=== PATIENT | male | born 1940 | race Caucasian/White ===

== ENCOUNTER 2016-02-28 10:28 | Outpatient (RCR) | payer OTHER ==
--- OUTSIDE RECORDS SUMMARY | 2016-01-23 12:46 | XMS REPORT | Continuity of Care Document ---
Author Author [facility] Organization [facility] Address Unknown Phone Unavailable Care Team Providers Care Tool Repairer Bench Name Role Phone MitchellmralaLocPrincess PCP [phone] Source Comments Some departments are not documenting in the electronic medical record. If you do not see the information that you expected, contact Release of Information in the Health Information Management department at [phone] for further assistance in locating additional records.[facility] Active Allergies and Adverse Reactions Not on File Current Medications Not on file Active Problems Not on file Most Recent Encounters Date Type Specialty Providers Description 11/09/2015 Patient Profile Cardiology Andrea Rios New Patient - A Fib/ Flutter Social History Tobacco Use Types Packs/Day Years Used Date Never Assessed Plan of Care Health Maintenance Due Date Last Done Comments Physical (Comprehensive) 1947 Exam Pertussis Vaccine 1949 Tetanus Vaccine 05/04/1955 Shingles Vaccine 1998 Prevnar/Pneumovax (#1) 05/04/2003 Influenza Vaccine 10/20/2015 Results from Last 3 Months Not on file
[2016-01-23 13:03] LABS: BASOPHILS % (AUTO) 0 % (0-10); EOSINOPHILS # (AUTO) 0.1 10^3/uL (0.0-0.3); EOSINOPHILS % (AUTO) 1 % (0-10); LYMPHOCYTES # (AUTO) 0.8 X 10^3 (1.0-4.0); LYMPHOCYTES % (AUTO) 10 % (12-44); MEAN CORPUSCULAR HEMOGLOBIN 30 PG (25-34); MEAN CORPUSCULAR HGB CONC 32 G/DL (32-36); MEAN CORPUSCULAR VOLUME 94 FL (80-99); MEAN PLATELET VOLUME 8.7 FL (7.4-10.4); MONOCYTES # (AUTO) 0.8 X 10^3 (0.0-1.0); MONOCYTES % (AUTO) 10 % (0-12); NEUTROPHILS # (AUTO) 5.8 X 10^3 (1.8-7.8); NEUTROPHILS % (AUTO) 79 % (42-75); PLATELET COUNT 244 10^3/uL (130-400); RED CELL DISTRIBUTION WIDTH 14.1 % (10.0-14.5); WHITE BLOOD COUNT 7.4 10^3/uL (4.3-11.0)
[2016-01-23 13:32] LABS: ALANINE AMINOTRANSFERASE 15 U/L (0-55); ALBUMIN 3.2 G/DL (3.2-4.5); ANION GAP 8 MMOL/L (5-14); ASPARTATE AMINO TRANSFERASE 22 U/L (5-34); BLOOD UREA NITROGEN 16 MG/DL (7-18); BUN/CREATININE RATIO 22; CALCIUM 8.6 MG/DL (8.5-10.1); CARBON DIOXIDE 33 MMOL/L (21-32); CHLORIDE 95 MMOL/L (98-107); CREATININE SERUM 0.72 MG/DL (0.60-1.30); GFR ESTIMATED > 60; GLUCOSE 103 MG/DL (70-105); POTASSIUM 3.7 MMOL/L (3.6-5.0); SODIUM 136 MMOL/L (135-145); TOTAL PROTEIN 5.4 G/DL (6.4-8.2)
[2016-01-23 14:33] LABS: BILIRUBIN,TOTAL 0.8 MG/DL (0.1-1.0)
[2016-01-24 07:58] LABS: FERRITIN 147 ng/mL (25-300)
[2016-01-30 08:33] LABS: BCR ABL GENE QT SEE FOOTNOTE
[~2016-02-28 10:28] MED LIST: ACET325T38 PO; ALBU2.5V4 IH; ALBU8.5H2 IH; ALEN70TA47 PO; ALLO100T PO; APIX5TAB PO; APIX5TAB2 PO; BISA5TAB8 PO; BUDE6HFA IH; CALC-656 PO; CALC-671 PO; CHOL100011 PO; DILT240C90 PO; DIPH25CA6 PO; ERGO400C PO; FERR-57 PO; FERR-74 PO; FL.025O15 TP; FLUO60SO2 TP; FRSM40T PO; FURO-125 PO; FURO40TA4 PO; HCT25T PO; IMAT400T PO; IMAT400T2 PO; INDO50CA PO; KETO120S5 TP; LEVO500T80 PO; LEVO750T6 PO; LISI10TA2 PO; LISI5TAB14 PO; LORA10TA7 PO; METO-274 PO; METO25TA2 PO; MORP15TA PO; MORP15TA30 PO; MORP15TA8 PO; MULT-142 PO; MUPI15CR11 TP; MUPI22OI2 TP; OMEP20CA12 PO; OXYC-103 PO; OXYC10TA7 PO; OXYC5TAB71 PO; PHYT100T PO; PHYT1LIQ PO; PNT40TEC PO; POTA10TA36 PO; POTA20PI PO; POTA20TA15 PO; PRD20T PO; PRED10TA PO; PRED10TA22 PO; PRED15SO PO; PRED5TAB PO; SIMV20TA3 PO; SIMV40TA4 PO; SPIR25TA3 PO; SPRN25T PO; TIOT18CA2 IH; TRIA1TAB3 PO; TRM50T PO; VIT1CAPS14 PO; VITAMIN K PO; ZLP10T PO; ZLP5T PO; [UNRECOGNIZED DRUG - CODE] PO; calcium PO
[2016-03-05] MEDS ORDERED: PRD10T PO (11:01)
[2016-03-05] MEDS ORDERED: FERR324T4 PO (11:01)
[2016-03-05] MEDS ORDERED: LISI10TA2 PO (11:01)
[2016-03-05] MEDS ORDERED: DILT240C PO (11:01)
[2016-03-05] MEDS ORDERED: SIMV20TA3 PO (11:01)
[2016-03-05] MEDS ORDERED: LISI-556 PO (12:36)
== END 2016-03-06 | disposition home or self-care (01) ==
LOC: ONC 10:28
PROVIDERS: ATTEND Internal Medicine Hematology & Oncology
DX: C92.10 Chronic myeloid leukemia, BCR/ABL-positive, not having achieved remission (principal); I25.10 Atherosclerotic heart disease of native coronary artery without angina pectoris; I10 Essential (primary) hypertension; E78.00 Pure hypercholesterolemia, unspecified; Z87.891 Personal history of nicotine dependence; Z79.899 Other long term (current) drug therapy
CPT/HCPCS: 36415; 80053; 81206; 82728; 85025; 99213

== ENCOUNTER 2016-03-04 10:31 | Inpatient (IN) | payer OTHER ==
[~2016-03-04] VITALS: Ht 180.3 cm; Wt 93.2 kg
--- OUTSIDE RECORDS SUMMARY | 2016-03-04 10:35 | XMS REPORT | Continuity of Care Document ---
Author Author [facility] Organization [facility] Address Unknown Phone Unavailable Care Team Providers Care Nuclear Medicine Chief Technologist Name Role Phone Princess Feldman PCP [phone] Source Comments Some departments are not documenting in the electronic medical record. If you do not see the information that you expected, contact Release of Information in the Health Information Management department at [phone] for further assistance in locating additional records.[facility] Active Allergies and Adverse Reactions Not on File Current Medications Not on file Active Problems Not on file Social History Tobacco Use Types Packs/Day Years Used Date Never Assessed Plan of Care Health Maintenance Due Date Last Done Comments Physical (Comprehensive) 1947 Exam Pertussis Vaccine 1949 Tetanus Vaccine 05/04/1955 Shingles Vaccine 1998 Prevnar/Pneumovax (#1) 05/04/2003 Influenza Vaccine 10/20/2015 Results from Last 3 Months Not on file
--- NOTE | 2016-03-04 10:54 | ED Cough/URI ---
General Stated Complaint: WHEEZING/DIFF BREATHING Source: patient Exam Limitations: no limitations History of Present Illness Time seen by provider: 10:53 Initial Comments To ER with reports of wheezing and difficulty breathing. He's had a nasty sounding cough for the past 3 weeks according to family members. They've been seen at [facility] and he finished antibiotics about a week ago for bronchitis. He has COPD and wears oxygen at 2 L [id number]. Timing/Duration: constant, getting worse Severity/Quality: productive cough Associated Symptoms: cough Allergies and Home Medications Allergies Coded Allergies: No Known Drug Allergies (Unverified , 04/08/15) Home Medications Acetaminophen 325 Mg Tablet 325 MG PO Q4H PRN PRN PAIN (Reported) Albuterol 8.5 Gm Hfa.aer.ad 2 PUFF IH Q4H PRN PRN SHORTNESS OF BREATH (Reported ) Albuterol Sulfate 2.5 Mg/3 Ml Vial.neb 2.5 MG IH QID PRN PRN SHORTNESS OF BREATH (Reported) Alendronate Sodium 70 Mg Tablet 70 MG PO WEEKLY ON SATURDAY (Reported) Budesonide/Formoterol Fumarate 1 Inhaler Aero 2 PUFF IH BID PRN PRN SHORTNESS OF BREATH (Reported) Calcium Carbonate/Vitamin D3 1 Each Tablet 1 TAB PO BID (Reported) Cholecalciferol 1,000 Unit Capsule 1,000 UNIT PO DAILY (Reported) Diltiazem HCl 240 Mg Cap.er.24h #30 240 MG PO DAILY Prescribed by: VITO PATE on 09/11/15 1126 Diphenhydramine HCl 25 Mg Capsule 25 MG PO HS PRN PRN ALLERGIES (Reported) Ferrous Sulfate 325 Mg Tablet 325 MG PO DAILY (Reported) Fluocinolone Acetonide 60 Ml Solution TP BID PRN PRN ITCHING (Reported) Furosemide 40 Mg Tablet 60 MG PO DAILY (Reported) Ketoconazole 120 Ml Shampoo TP DAILY (Reported) APPLY TO SCALP DAILY (LEAVE ON 5 MINUTES THEN WASH OFF) Loratadine 10 Mg Tablet 10 MG PO DAILY PRN PRN ALLERGIES (Reported) Metoprolol Succinate 100 Mg Tab.er.24h 50 MG PO DAILY (Reported) TAKES 1/2 (100MG) TABLET Multivitamin W-Minerals/Lutein 1 Each Tablet 1 TAB PO BID (Reported) Mupirocin Calcium 15 Gm Cream..g. TP DAILY (Reported) Oxycodone Hcl 5 Mg Tablet 5 MG PO 5 TIMES DAILY PRN PRN PAIN (Reported) Phytonadione 100 Mcg Tablet 100 MCG PO DAILY (Reported) Potassium Chloride 20 Meq Tab.prt.sr 20 MEQ PO DAILY (Reported) Prednisone 20 Mg Tab #11 20 MG PO DAILY (Reported) Take 3 tabs(60mg)daily, decrease by 1/2 tab(10mg)daily. Simvastatin 20 Mg Tablet #30 20 MG PO DAILY PRN PRN 30 Prescribed by: VITO PATE on 09/11/15 1126 Tiotropium [place] 1 Inh Aerp 1 CAP IH DAILY PRN PRN SHORTNESS OF BREATH ( Reported) Zolpidem Tartrate 5 Mg Tablet 5 MG PO HS PRN PRN SLEEP (Reported) Constitutional: see HPI EENTM: see HPI Respiratory: see HPI cough short of breath Genitourinary: no symptoms reported Musculoskeletal: no symptoms reported Skin: no symptoms reported Psychiatric/Neurological: No Symptoms Reported Hematologic/Lymphatic: No Symptoms Reported Immunological/Allergic: no symptoms reported Past Nrqjtht-Rpwqij-Prgyqv Hx Patient Social History Former Smoker/When Quit: Feb 18, 1967 Recent Foreign Travel: No Contact w/Someone Who Travel: No Recent Hopitalizations: No Immunizations Up To Date Tetanus Booster (TDap): Unknown PED Vaccines UTD: No Date of Pneumonia Vaccine: Jan 18, 2015 Date of Influenza Vaccine: Nov 19, 2015 Seasonal Allergies Seasonal Allergies: Yes Surgeries HX Surgeries: Yes (LL lobectomy) Surgeries: Lobectomy Respiratory Hx Respiratory Disorders: Yes (Chronic hypoxia on continuous home oxygen supplementation) Respiratory Disorders: Pneumonia, Chronic Bronchitis, COPD Cardiovascular Hx Cardiac Disorders: Yes Cardiac Disorders: Atrial Fibrillation, Valvular Heart Disease Neurological Hx Neurological Disorders: No Reproductive System Hx Reproductive Disorders: No Sexually Transmitted Disease: No HIV/AIDS: No Genitourinary Hx Genitourinary Disorders: No Gastrointestinal Hx Gastrointestinal Disorders: No Musculoskeletal Hx Musculoskeletal Disorders: Yes (polymyalgia rheumatica) Musculoskeletal Disorders: Arthritis, Chronic Back Pain Endocrine Hx Endocrine Disorders: No HEENT HX ENT Disorders: No HEENT Disorders: Cataract Loss of Vision: Bilateral Hearing Impairment: Hard of Hearing, Bilateral Hearing Aide Cancer Hx Cancer: Yes Cancer: Leukemia, Skin Psychosocial Hx Psychiatric Problems: No Integumentary HX Skin/Integumentary Disorder: Yes (SKIN CA REMOVED TO L HAND, FOREHEAD, AND TOP OF HEAD) Blood Transfusions Hx Blood Disorders: Yes (Chronic Leukemia ) Family Medical History Family Medial History: FH: cancer G8 BROTHER Physical Exam Vital Signs Vital Sign - Last 12Hours 03/04/16 10:45 Temp 98.9 Pulse 88 Resp 22 B/P 108/76 Pulse Ox 89 O2 Delivery Nasal Cannula O2 Flow Rate 3 Capillary Refill : General Appearance: WD/WN no apparent distress Eyes: Bilateral Eye EOMI, Bilateral Eye Normal Inspection, Bilateral Eye PERRL HEENT: PERRL/EOMI normal ENT inspection Neck: non-tender full range of motion Respiratory: no respiratory distress no accessory muscle use crackles rales rhonchi wheezing Cardiovascular: regular rate, rhythm no murmur Gastrointestinal: normal bowel sounds non tender soft Extremities: normal range of motion non-tender Neurologic/Psychiatric: alert normal mood/affect oriented x 3 Skin: normal color warm/dry Progress/Results/Core Measures Results/Orders Lab Results Laboratory Tests Test 03/04/16 10:55 03/04/16 11:10 Range/Units Alanine Aminotransferase (ALT/SGPT) 18 0-55 U/L Albumin 3.4 3.2-4.5 G/DL Alkaline Phosphatase 90 40-136 U/L Anion Gap 12 5-14 MMOL/L Aspartate Amino Transf (AST/SGOT) 20 5-34 U/L BUN/Creatinine Ratio 29 Band Neutrophils 2 % Basophils # (Auto) 0.0 0.0-0.1 10^3/uL Basophils (%) (Auto) 0 0-10 % Blood Morphology Comment NORMAL Blood Urea Nitrogen 20 H 7-18 MG/DL Calcium Level 9.2 8.5-10.1 MG/DL Carbon Dioxide Level 32 21-32 MMOL/L Chloride Level 87 L 98-107 MMOL/L Creatinine 0.68 0.60-1.30 MG/DL Eosinophils # (Auto) 0.0 0.0-0.3 10^3/uL Eosinophils (%) (Auto) 0 0-10 % Estimat Glomerular Filtration Rate > 60 Glucose Level 143 H 70-105 MG/DL Hematocrit 34 L 40-54 % Hemoglobin 11.2 L 13.3-17.7 G/DL Hypersegmented Neutrophils SLIGHT Lymphocytes # (Auto) 0.4 L 1.0-4.0 X 10^3 Lymphocytes % (Manual) 1 % Lymphocytes (%) (Auto) 4 L 12-44 % Mean Corpuscular Hemoglobin 30 25-34 PG Mean Corpuscular Hemoglobin Concent 33 32-36 G/DL Mean Corpuscular Volume 94 80-99 FL Mean Platelet Volume 8.6 7.4-10.4 FL Monocytes # (Auto) 0.7 0.0-1.0 X 10^3 Monocytes % (Manual) 6 % Monocytes (%) (Auto) 8 0-12 % Neutrophils # (Auto) 7.7 1.8-7.8 X 10^3 Neutrophils % (Manual) 91 % Neutrophils (%) (Auto) 88 H 42-75 % Platelet Count 255 130-400 10^3/uL Potassium Level 4.2 3.6-5.0 MMOL/L Red Blood Count 3.68 L 4.35-5.85 10^6/uL Red Cell Distribution Width 13.3 10.0-14.5 % Sodium Level 131 L 135-145 MMOL/L Total Bilirubin 0.9 0.1-1.0 MG/DL Total Protein 6.4 6.4-8.2 G/DL White Blood Count 8.8 4.3-11.0 10^3/uL Lactic Acid Level 1.9 0.5-2.0 MMOL/L My Orders Orders-MINERVA BARRIOS APRN Chest Pa/Lat (2 View) (03/04/16 10:52) Cbc With Automated Diff (03/04/16 10:52) Comprehensive Metabolic Panel (03/04/16 10:52) Saline Lock/Iv-Start (03/04/16 10:52) Blood Culture (03/04/16 10:52) Lactic Acid Analyzer (03/04/16 10:52) Albuterol/Ipra Inhalation Soln (Duoneb I (03/04/16 11:00) Svn Sm Volume Nebulizer Rt-Rfs (03/04/16 10:52) Manual Differential (03/04/16 10:55) Ct Chest W (03/04/16 11:23) Iohexol Injection (Omnipaque 350 Mg/Ml 1 (03/04/16 11:30) Ns (Ivpb) (Sodium Chloride 0.9% Ivpb Bag (03/04/16 11:30) Sodium Chloride Flush (Catheter Flush Sy (03/04/16 11:30) Ekg Tracing (03/04/16 12:13) Furosemide Injection (Lasix Injection) (03/04/16 12:15) Medications Given in ED Current Medications Medications Dose Ordered Sig/Hannah Route Start Time Stop Time Status Last Admin Dose Admin Albuterol/ Ipratropium 3 ml ONCE ONCE INH 03/04/16 11:00 03/04/16 11:01 DC 03/04/16 11:11 3 ML Iohexol 75 ml ONCE ONCE IV 03/04/16 11:30 03/04/16 11:45 DC 03/04/16 11:41 75 ML Sodium Chloride 100 ml ONCE ONCE IV 03/04/16 11:30 03/04/16 11:45 DC 03/04/16 11:41 80 ML Vital Signs/I&O Vital Sign - Last 12Hours 03/04/16 03/04/16 10:45 11:12 Temp 98.9 Pulse 88 Resp 22 B/P 108/76 Pulse Ox 89 95 O2 Delivery Nasal Cannula Nasal Cannula O2 Flow Rate 3 5.00 Diagnostic Imaging Diagonstic Imaging: Xray, CT Plain Films/CT/US/NM/MRI: chest Comments NAME: TAI VILLEGAS [facility] REC#: [id number] PT STATUS: REG ER : 1940 PHYSICIAN: MINERVA BARRIOS APRN ADMIT DATE: 03/04/16/ER Signed Date of Exam:03/04/16 CHEST PA/LAT (2 VIEW) Indication: Dyspnea for 2 days, history of left pneumonectomy. Discussion: Two views of the chest were obtained, comparison 02/15/[address] from 08/25/2015. Postsurgical changes of partial left pneumonectomy are again noted. There is near complete opacification of the left hemithorax with significant volume loss. There is minimal aerated lung within the left mid chest which appears similar to the previous CT though the gas component is slightly increased from the most recent chest x-ray, and therefore an underlying infection cannot be entirely excluded. If clinically indicated, chest CT with contrast could be performed for more definitive evaluation. Stable normal heart size. Small right pleural effusion is stable. Impression: 1. Near complete opacification left hemithorax is again demonstrated. There appears to be a small amount of aerated lung within the left mid chest which appears stable to most recent CT though increased from previous chest x-ray. This could be an incidental finding though an underlying infection cannot be excluded. Recommend chest CT with contrast for further evaluation as clinically indicated. 2. Small right pleural effusion, stable. Dictated by: Dictated on workstation # [id number] Dict: 03/04/16 1111 Trans: 03/04/[address] [facility] [id number] Interpreted by: JENIFER SANTOS MD Electronically signed by: JENIFER SANTOS MD 03/04/16 1120 NAME: TAI VILLEGAS [facility] REC#: [id number] PT STATUS: REG ER : 1940 PHYSICIAN: MINERVA BARRIOS APRN ADMIT DATE: 03/04/16/ER Draft Date of Exam:03/04/16 CT CHEST W PROCEDURE: CT chest with contrast only. TECHNIQUE: Multiple contiguous axial images were obtained through the chest after administration of intravenous contrast. INDICATION: Shortness of breath, leukemia. FINDINGS: The CT chest exam performed on 08/25/2015 noted postoperative changes consistent with prior left pneumonectomy. There was also some fluid within the left hemithorax. Those findings are again evident on this study. There is some gas interspersed amidst the fluid in the left lung. There does appear to be a defect in the main pulmonary artery on the left. In retrospect, there also appeared to be a defect on the previous exam. Consequently, the thrombus formation in the left main pulmonary artery may well be chronic in nature. There is no sign of thrombus formation on the right. The heart is enlarged but stable. There is still a very small pericardial effusion present. The previous exam also identified atelectasis/infiltrate and at least moderate amount of fluid in the right lung. There has been an increase in the atelectasis/infiltrate involving the right lower lobe in the interval since the prior study. The amount of fluid has also increased and now measures 9.3 cm in maximum depth as opposed to 5.8 cm on the prior study. The interstitial densities in the right lung also seem more prominent than on prior exam, and there may be an element of pulmonary congestion present as well. The bone windows show no evidence for a fracture or for a destructive lesion. The sections through the upper abdomen are unremarkable for an acute abnormality. IMPRESSION: 1. The appearance of the chest has worsened since the previous study as there is greater involvement of the right lung base by pneumonia/atelectasis and pleural fluid. The interstitial densities in the right lung are also more prominent, and most likely there is an element of pulmonary congestion present as well. 2. The defect within the left main pulmonary artery does suggest a pulmonary embolus. This finding appears to be long-standing in nature, however. 3. There are postoperative changes consistent with a partial left pneumonectomy. 4. These results will be discussed with Minerva Barrios APRN. The lymph node in the anterior mediastinum seen previously measuring 1.1 cm now measures 1.5 cm. CRITICAL FINDING Dictated on workstation # [id number] Dict: 03/04/16 1202 Trans: 03/04/16 1221 [id number] Interpreted by: CICI GAMA MD Electronically signed by: Departure Communication Time/Spoke to Admitting Phy: 12:34 Communication Discussed the case with Dr. Pate who agrees to accept the patient. Restart Eliquis Progress Notes 1234-I discussed with the patient the finding of pulmonary embolus and left pulmonary artery. He is not on Eliquis currently. He stopped this because of an interaction between it and the Gleevec that he was taking. He stopped the Gleevec about one to 2 weeks ago. He is Zoroastrianism and does not want any blood transfusions. I did discuss the risk of bleeding and from hemorrhage if we start Eliquis blood thinner but he and his family would like to proceed with starting aliquots. Furthermore I had a gabriele discussion with him about his prognosis and comorbidities. They are understanding that his prognosis is poor and would like to discuss with a hospice company if hospice would be appropriate for him. Impression Impression: Primary Impression: Pneumonia Qualified Code: J18.9 - Pneumonia, unspecified organism Additional Impressions: Left pulmonary embolus COPD (chronic obstructive pulmonary disease) Qualified Code: J42 - Unspecified chronic bronchitis Disposition: 09 ADMITTED INPATIENT Condition: Critical Decision to Admit Reason: Admit from ER (General) Decision to Admit/Date: Mar 04, 2016 Time/Decision to Admit Time: 12:36 Departure-Patient Inst. Referrals: JOSH POWELL DO (PCP/Family) Primary Care Physician MINERVA BARRIOS APRN Mar 04, 2016 10:54
[2016-03-04] MEDS ORDERED: RT-ALBUTEROL/IPRATROPIUM 3 ML (DUONEB) VIAL INH ONE (11:00)
[2016-03-04 11:04] LABS: BASOPHILS % (AUTO) 0 % (0-10); EOSINOPHILS % (AUTO) 0 % (0-10); LYMPHOCYTES # (AUTO) 0.4 X 10^3 (1.0-4.0); LYMPHOCYTES % (AUTO) 4 % (12-44); MEAN CORPUSCULAR HEMOGLOBIN 30 PG (25-34); MEAN CORPUSCULAR HGB CONC 33 G/DL (32-36); MEAN CORPUSCULAR VOLUME 94 FL (80-99); MEAN PLATELET VOLUME 8.6 FL (7.4-10.4); MONOCYTES # (AUTO) 0.7 X 10^3 (0.0-1.0); MONOCYTES % (AUTO) 8 % (0-12); NEUTROPHILS # (AUTO) 7.7 X 10^3 (1.8-7.8); NEUTROPHILS % (AUTO) 88 % (42-75); PLATELET COUNT 255 10^3/uL (130-400); RED BLOOD COUNT 3.68 10^6/uL (4.35-5.85); RED CELL DISTRIBUTION WIDTH 13.3 % (10.0-14.5); WHITE BLOOD COUNT 8.8 10^3/uL (4.3-11.0)
--- NOTE | 2016-03-04 11:18 | Diagnostic Imaging Report ---
Indication: Dyspnea for 2 days, history of left pneumonectomy. Discussion: Two views of the chest were obtained, comparison 02/15/[address] from 08/25/2015. Postsurgical changes of partial left pneumonectomy are again noted. There is near complete opacification of the left hemithorax with significant volume loss. There is minimal aerated lung within the left mid chest which appears similar to the previous CT though the gas component is slightly increased from the most recent chest x-ray, and therefore an underlying infection cannot be entirely excluded. If clinically indicated, chest CT with contrast could be performed for more definitive evaluation. Stable normal heart size. Small right pleural effusion is stable. Impression: 1. Near complete opacification left hemithorax is again demonstrated. There appears to be a small amount of aerated lung within the left mid chest which appears stable to most recent CT though increased from previous chest x-ray. This could be an incidental finding though an underlying infection cannot be excluded. Recommend chest CT with contrast for further evaluation as clinically indicated. 2. Small right pleural effusion, stable. Dictated by: Dictated on workstation # [id number]
[2016-03-04 11:23] LABS: ALANINE AMINOTRANSFERASE 18 U/L (0-55); ALBUMIN 3.4 G/DL (3.2-4.5); ANION GAP 12 MMOL/L (5-14); ASPARTATE AMINO TRANSFERASE 20 U/L (5-34); BILIRUBIN,TOTAL 0.9 MG/DL (0.1-1.0); BLOOD UREA NITROGEN 20 MG/DL (7-18); BUN/CREATININE RATIO 29; CALCIUM 9.2 MG/DL (8.5-10.1); CARBON DIOXIDE 32 MMOL/L (21-32); CHLORIDE 87 MMOL/L (98-107); CREATININE SERUM 0.68 MG/DL (0.60-1.30); GFR ESTIMATED > 60; GLUCOSE 143 MG/DL (70-105); POTASSIUM 4.2 MMOL/L (3.6-5.0); SODIUM 131 MMOL/L (135-145); TOTAL PROTEIN 6.4 G/DL (6.4-8.2)
[2016-03-04 11:29] LABS: BAND NEUTROPHILS 2 %; LYMPHOCYTES % (MANUAL) 1 %; NEUTROPHILS % (MANUAL) 91 %
[2016-03-04] MEDS ORDERED: NS 100 ML (IVPB) BAG IV ONE (11:30)
[2016-03-04] MEDS ORDERED: IOHEXOL 350 MG/ML 100 ML (OMNIPAQUE 350) VIAL IV ONE (11:30)
[2016-03-04] MEDS ORDERED: CATHETER FLUSH 10 ML SYR IV PRN (11:30)
[2016-03-04] MEDS ORDERED: FUROSEMIDE 40 MG/4 ML INJ (LASIX) IVP ONE (12:15)
--- NOTE | 2016-03-04 12:21 | Diagnostic Imaging Report ---
PROCEDURE: CT chest with contrast only. TECHNIQUE: Multiple contiguous axial images were obtained through the chest after administration of intravenous contrast. INDICATION: Shortness of breath, leukemia. FINDINGS: The CT chest exam performed on 08/25/2015 noted postoperative changes consistent with prior left lower lobectomy. There was also some fluid within the left hemithorax. Those findings are again evident on this study. The left upper lobe is only partially aerated. This appearance is also similar to the prior study. There does appear to be a defect in the main pulmonary artery on the left. In retrospect, this was also present on the previous exam. Consequently, the thrombus formation in the left main pulmonary artery may well be chronic in nature. There is no sign of thrombus formation in the right pulmonary artery. The aorta is not abnormally dilated. The heart is enlarged but stable. There is still a very small pericardial effusion present. The previous exam also identified atelectasis/infiltrate and at least moderate amount of fluid in the right lung. There has been an increase in the atelectasis/infiltrate involving the right lower lobe in the interval since the prior study. The amount of fluid has also increased and now measures 9.3 cm in maximum depth as opposed to 5.8 cm on the prior study. The interstitial densities in the right lung also seem more prominent than on prior exam, and there may be an element of pulmonary congestion present as well. The lymph node in the anterior mediastinum measuring 1.1 cm on the prior exam now measures 1.5 cm. This node is non-specific in appearance, but this may represent a reactive node. The bone windows show no evidence for a fracture or for a destructive lesion. The sections through the upper abdomen are unremarkable for an acute abnormality. IMPRESSION: 1. The appearance of the chest has worsened since the previous study as there is greater involvement of the right lung base by pneumonia/atelectasis and pleural fluid. The interstitial densities in the right lung are also more prominent, and most likely there is an element of pulmonary congestion present as well. 2. The defect within the left main pulmonary artery does suggest a pulmonary embolus. This finding appears to be long-standing in nature, however. 3. There are postoperative changes consistent with a left lower lobectomy. 4. These results were discussed with Zach Barrios APRN. CRITICAL FINDING Dictated by: Dictated on workstation # [id number]
[2016-03-04] MEDS ORDERED: LEVOFLOXACIN 500 MG/100 ML IV 100 ML IV SCH (14:12)
[2016-03-04] MEDS ORDERED: VANCOMYCIN INJECTION 2,000 MG in NS IV 500 ML 500 ML IV NR (14:13)
[2016-03-04 14:52] VITALS: BP 126/71
[2016-03-04] MEDS ORDERED: PIPERACILLIN SODIUM/TAZOBACTAM 4.5 GM in NS (BAXTER MINI) 100 ML IV NR ×2 (15:00→19:00)
[2016-03-04] MEDS ORDERED: RT-ALBUTEROL/IPRATROPIUM 3 ML (DUONEB) VIAL INH PRN (15:45)
[2016-03-04] MEDS: KCL 20 MEQ TAB (K-DUR) PO SCH (16:54)
[2016-03-04] MEDS: FUROSEMIDE 40 MG/4 ML INJ (LASIX) IVP SCH (16:54)
[2016-03-04 16:55] VITALS: BP 122/67
[2016-03-04] MEDS: RT-ALBUTEROL/IPRATROPIUM 3 ML (DUONEB) VIAL INH SCH (19:48)
[2016-03-04 20:00] VITALS: BP 114/83
[2016-03-04] MEDS: CEFEPIME INJECTION 2,000 MG in NORMAL SALINE (BAXTER MINI) 50 ML IV SCH (20:53)
[2016-03-04] MEDS: ZOLPIDEM 5 MG (AMBIEN) TAB PO PRN (20:54)
[2016-03-04] MEDS: APIXABAN 5 MG (ELIQUIS) TABLET PO SCH (20:54)
[2016-03-04] MEDS: ACETAMINOPHEN 500 MG TAB (TYLENOL) PO PRN (20:54)
[2016-03-05] VITALS: BP 132/72
[2016-03-05] MEDS: ACETAMINOPHEN 500 MG TAB (TYLENOL) PO PRN ×5 (00:59→20:37)
[2016-03-05] MEDS ORDERED: PIPERACILLIN SODIUM/TAZOBACTAM 4.5 GM in NORMAL SALINE (BAXTER MINI) 100 ML IV SCH (01:00)
[2016-03-05] MEDS: RT-ALBUTEROL/IPRATROPIUM 3 ML (DUONEB) VIAL INH SCH ×7 (01:14→22:22)
[2016-03-05] MEDS ORDERED: VANCOMYCIN 1250 MG/NS 250 ML IVPB IV SCH ×2 (02:00)
[2016-03-05 04:00] VITALS: BP 163/90
[2016-03-05] MEDS: FUROSEMIDE 40 MG/4 ML INJ (LASIX) IVP SCH ×2 (06:12→16:18)
[2016-03-05 07:59] VITALS: BP 139/79
[2016-03-05] MEDS: APIXABAN 5 MG (ELIQUIS) TABLET PO SCH ×2 (08:04→20:37)
[2016-03-05] MEDS: KCL 20 MEQ TAB (K-DUR) PO SCH ×2 (08:04→17:30)
[2016-03-05] MEDS: CEFEPIME INJECTION 2,000 MG in NORMAL SALINE (BAXTER MINI) 50 ML IV SCH (08:05)
[2016-03-05] MEDS ORDERED: CATHETER FLUSH 10 ML SYR IV PRN (08:30)
[2016-03-05] MEDS ORDERED: DILTIAZEM 240 MG (CARDIZEM CD) CAP PO SCH (09:00)
[2016-03-05] MEDS ORDERED: meTOproloL SUCCINATE 50 MG (TOPROL XL) TAB PO SCH (09:00)
[2016-03-05] MEDS ORDERED: FLUTICASONE NASAL SPRAY (FLONASE) 16 GM BTL NS SCH (09:45)
[2016-03-05] MEDS ORDERED: LISI10TA2 PO (11:01)
[2016-03-05] MEDS ORDERED: PRD10T PO (11:01)
[2016-03-05] MEDS ORDERED: DILT240C PO (11:01)
[2016-03-05] MEDS ORDERED: SIMV20TA3 PO (11:01)
[2016-03-05] MEDS ORDERED: FERR324T4 PO (11:01)
[2016-03-05 12:23] VITALS: BP 123/68
[2016-03-05] MEDS ORDERED: LISI-556 PO (12:36)
[2016-03-05] MEDS ORDERED: TROUGH ORDER-PHARMACY XX NR (13:00)
[2016-03-05] MEDS ORDERED: SCOPOLAMINE 1.5 MG (TRANSDERM-SCOP) PATCH TOP SCH (13:45)
[2016-03-05] MEDS ORDERED: LORazepam 0.5 MG (ATIVAN) TABLET PO PRN (13:45)
--- NOTE | 2016-03-05 13:47 | Short Stay Summary-Hospitalist ---
HPI History of Present Illness: HPI/Chief Complaint The patient is a 75-year-old white male known to me from previous admission. He presented to the emergency room with increasing shortness of breath as a complaint. His past medical history is positive for recurrent lung cancer. He has previously had a left lower lobectomy and presumptive radiation therapy. He was seen in the emergency room on 02/14 and had a chest x-ray which showed a basic white out of the left lung field. He returned yesterday 03/04 with a very similar looking chest x-ray. 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 There is nothing to suggest that this is a new finding on the left. The white blood count was 9000. The patient was afebrile.. He is not previously been on hospice or comfort care. This will be discussed. Source: patient Exam Limitations: no limitations Date Seen 03/05/16 Attending Physician Rodríguez Pate MD PCP Dirk Amor DO Referring Physician Date of Admission Mar 04, 2016 at 12:38 Home Medications & Allergies Home Medications Reviewed patient Home Medication Reconciliation Form Allergies Coded Allergies: No Known Drug Allergies (Unverified , 04/08/15) Past Cvxrgza-Hbpwla-Jzream Hx Patient Social History Alcohol Use: Denies Use Recreational Drug Use: No Smoking Status: Former Smoker Former smoker/When Quit: Feb 18, 1967 Physical Abuse Screen: No Sexual Abuse: No Recent Foreign Travel: No Contact w/other who traveled: No Recent Hopitalizations: No Recent Infectious Disease Expo: No Immunizations Up To Date Tetanus Booster (TDap): Unknown Date of Pneumonia Vaccine: Jan 18, 2015 Date of Influenza Vaccine: Nov 19, 2015 Seasonal Allergies Seasonal Allergies: No Surgeries HX Surgeries: Yes (LL lobectomy) Surgeries: Lobectomy Respiratory Hx Respiratory Disorders: Yes (Chronic hypoxia on continuous home oxygen supplementation) Respiratory Disorders: COPD, Pneumonia Cardiovascular Hx Cardiovascular Disorders: Yes Cardiac Disorders: Atrial Fibrillation, Valvular Heart Disease Neurological Hx Neurological Disorders: No Reproductive System Hx Reproductive Disorders: No Sexually Transmitted Disease: No HIV/AIDS: No Genitourinary Hx Genitourinary Disorders: No Gastrointestinal Hx Gastrointestinal Disorders: No Musculoskeletal Hx Musculoskeletal Disorders: Yes (polymyalgia rheumatica) Musculoskeletal Disorders: Arthritis, Chronic Back Pain Endocrine Hx Endocrine Disorders: No HEENT HX ENT Disorders: No HEENT Disorders: Cataract Loss of Vision: Bilateral Hearing Impairment: Hard of Hearing, Bilateral Hearing Aide Cancer Hx Cancer: Yes Cancer: Leukemia, Skin Psychosocial Hx Psychiatric Problems: No Integumentary HX Skin/Integumentary Disorder: Yes (SKIN CA REMOVED TO L HAND, FOREHEAD, AND TOP OF HEAD) Blood Transfusions Hx Blood Disorders: Yes (Chronic Leukemia ) Family Medical History Family Hx: FH: cancer G8 BROTHER Review of Systems Constitutional: see HPI EENTM: hoarseness Respiratory: see HPI cough dyspnea on exertion orthopnea phlegm short of breath Cardiovascular: no symptoms reported Gastrointestinal: loss of appetite Genitourinary: no symptoms reported Musculoskeletal: muscle weakness Skin: no symptoms reported Psychiatric/Neurological: Anxiety Depressed Physical Exam Physical Exam Vital Signs Capillary Refill : Less Than 3 Seconds General Appearance: Mild Distress (at rest) Eyes: Bilateral Eye Normal Inspection HEENT: Normal ENT Inspection Neck: Normal Inspection Respiratory: Other (inspiratory rattle is noted which seems to come from neck. There is dullness and no breath sounds on the left lung field.) Cardiovascular: Regular Rate, Rhythm No Edema No Gallop No JVD No Murmur Normal Peripheral Pulses Gastrointestinal: Normal Bowel Sounds No Organomegaly No Pulsatile Mass Non Tender Soft Skin: Normal Color Warm/Dry Lymphatic: No Adenopathy Results Results/Procedures Lab Short Stay Diagnosis Discharge Diagnosis-Short Stay Admission Diagnosis Progressive dyspnea. 2.progression of carcinoma of the lung. 3.end-of-life issues. Final Discharge Diagnosis 1.respiratory failure. 2.progression carcinoma of the lung. Conclusion Plan Hospice/palliative care consult Clinical Quality Measures DVT/VTE Risk/Contraindication: Risk Factor Score Per Nursin RFS Level Per Nursing on Admit: 4+=Very High DERRICK SALINAS MD Mar 05, 2016 13:47 Lab Laboratory Tests 03/04/16 10:55 Short Stay Diagnosis Discharge Diagnosis-Short Stay Admission Diagnosis Progressive dyspnea. 2.progression of carcinoma of the lung. 3.end-of-life issues. Clinical Quality Measures DVT/VTE Risk/Contraindication: Risk Factor Score Per Nursin RFS Level Per Nursing on Admit: 4+=Very High DERRICK SALINAS MD Mar 05, 2016 13:47
[2016-03-05] MEDS: CATHETER FLUSH 10 ML SYR IV SCH ×2 (14:03→20:43)
[2016-03-05] MEDS: morphine (ROXINOL) 10 MG/0.5 ML oral conc 0.5 ML PO PRN ×3 (15:11→22:43)
[2016-03-05 15:49] VITALS: BP 139/90
[2016-03-05 19:48] VITALS: BP 128/77
[2016-03-05] MEDS: ZOLPIDEM 5 MG (AMBIEN) TAB PO PRN (20:37)
[2016-03-06] VITALS: BP 100/60
[2016-03-08] MEDS ORDERED: SCOPOLAMINE PATCH REMOVAL TP SCH (13:44)
[2016-03-11] MEDS ORDERED: APIXABAN 5 MG (ELIQUIS) TABLET PO SCH (21:00)
== END 2016-03-06 01:43 | disposition expired | DRG 190 ==
LOC: EDUNIT# 10:31 → ER 10:32 → 4TH 12:38 → ICU 12:38 → UNDOADMIN 12:38 → 4TH 03-05 16:01
PROVIDERS: ADMIT Internal Medicine; ATTEND Internal Medicine
DX: J44.0 Chronic obstructive pulmonary disease with (acute) lower respiratory infection (principal); J18.9 Pneumonia, unspecified organism; C34.92 Malignant neoplasm of unspecified part of left bronchus or lung; C91.10 Chronic lymphocytic leukemia of B-cell type not having achieved remission; I27.82 Chronic pulmonary embolism; I48.91 Unspecified atrial fibrillation; Z99.81 Dependence on supplemental oxygen; Z87.891 Personal history of nicotine dependence; Z90.2 Acquired absence of lung [part of]
CPT/HCPCS: 36415; 71020; 71260; 80053; 80202; 83605; 85007; 85027; 87040; 93005; 94640; 94760; 96374